=== PATIENT | male | born 1970 | race Two or more races ===

== ENCOUNTER 2022-12-31 12:30 | Emergency (ER) | payer OTHER ==
[~2022-12-31] VITALS: Ht 172.7 cm; Wt 97.7 kg
[2022-12-31 12:35] VITALS: BP 148/51
[2022-12-31] MEDS ORDERED: METF-1211 PO (12:43)
[2022-12-31] MEDS ORDERED: SOTA80 PO ×2 (12:43→13:10)
[2022-12-31] MEDS ORDERED: LISI-659 PO (12:43)
[2022-12-31] MEDS ORDERED: ATOR40TA28 PO (12:43)
[2022-12-31] MEDS ORDERED: PARO10TA89 PO (12:43)
[2022-12-31] MEDS ORDERED: GLIP5TAB12 PO (12:43)
[2022-12-31] MEDS ORDERED: ASPI-1444 PO (12:43)
== END 2022-12-31 13:25 | disposition home or self-care (01) ==
LOC: EMS 12:33
DX: Z76.0 Encounter for issue of repeat prescription (principal); F41.9 Anxiety disorder, unspecified; E11.9 Type 2 diabetes mellitus without complications; I11.9 Hypertensive heart disease without heart failure; Z98.890 Other specified postprocedural states
CPT/HCPCS: 99281; Z7502

== ENCOUNTER 2023-09-01 00:37 | Emergency (ER) | payer OTHER ==
[~2023-09-01] VITALS: Ht 172.7 cm; Wt 97.7 kg
[~2023-09-01 00:37] MED LIST: ASPI-1444 PO; ATOR40TA28 PO; GLIP5TAB16 PO; LISI-659 PO; METF-1211 PO; PARO10TA89 PO; SOTA80 PO; SOTA80TA90 PO
[2023-09-01 00:38] VITALS: BP 136/97; PULSE 74; RESP 16; TEMP 98.2
[2023-09-01 01:47] LABS: COVID AG,FIA SOURCE NASAL SWAB
[2023-09-01 02:16] LABS: INFLUENZA TYPE A NEGATIVE FOR TYPE A (NEGATIVE); INFLUENZA TYPE B NEGATIVE FOR TYPE B (NEGATIVE); SARS-COV2 (COVID) ANTIGEN,FIA Negative (Negative)
== END 2023-09-01 05:11 | disposition left against medical advice (07) ==
LOC: EMS 00:38
DX: R05.9 Cough, unspecified (principal); R09.89 Other specified symptoms and signs involving the circulatory and respiratory systems; Z20.822 Contact with and (suspected) exposure to COVID-19; Z53.21 Procedure and treatment not carried out due to patient leaving prior to being seen by health care provider
CPT/HCPCS: 87804; 99281; Z7502

== ENCOUNTER 2024-05-06 11:52 | Emergency (ER) | payer OTHER ==
[~2024-05-06] VITALS: Ht 175.3 cm; Wt 95.5 kg
[2024-05-06 12:15] VITALS: TEMP 99
[2024-05-06] MEDS ORDERED: METF-446 PO (12:18)
[2024-05-06] MEDS ORDERED: PARO30TA60 PO (12:18)
[2024-05-06] MEDS ORDERED: LISI1TAB53 PO (12:18)
[2024-05-06] MEDS ORDERED: EMPA25TA3 PO (12:18)
[2024-05-06] MEDS ORDERED: ATOR-2 PO (12:18)
[2024-05-06] MEDS ORDERED: SOTA80TA PO (12:18)
[2024-05-06 12:33] LABS: HEMATOCRIT 49.6 % (41-53); HEMOGLOBIN 16.7 g/dL (13.5-17.5); LYMPHOCYTES # (AUTO) 2.2 K/uL (1.0-4.8); MEAN CORPUSCULAR HEMOGLOBIN 28.9 pg (26.0-34.0); MEAN CORPUSCULAR HGB CONC 33.6 G/dL (31.0-37.0); MEAN CORPUSCULAR VOLUME 86 fL (80-100); MONOCYTES # (AUTO) 0.6 K/uL (0.1-1.0); MONOCYTES % (AUTO) 8.1 % (2.0-9.0); NEUTROPHILS # (AUTO) 3.8 K/uL (1.8-7.7); NEUTROPHILS % (AUTO) 54.9 % (40.0-70.0); PLATELET COUNT (AUTO) 243 K/uL (150-450); RED BLOOD CELL COUNT(AUTO) 5.76 MIL/uL (4.50-5.90); RED CELL DISTRIBUTION WIDTH 13.9 % (11.5-14.5)
[2024-05-06 12:38] LABS: ANION GAP 14 mmol/L (8-16); CALCIUM, TOTAL 8.8 mg/dL (8.8-10.5); CARBON DIOXIDE 25 mmol/L (22-29); CHLORIDE 100 mmol/L (98-107); CREATININE 0.92 mg/dL (0.60-1.30); GLOMERULAR FILTR. RATE CALC > 60 mL/min (>60); GLUCOSE,RANDOM 90 mg/dL (70-110); SODIUM SERUM 139 mmol/L (136-145); UREA NITROGEN, BLOOD 14 mg/dL (7-18)
[2024-05-06 12:44] LABS: PROTHROMBIN TIME 10.5 SEC (9.4-11.6)
[2024-05-06 12:45] LABS: ALANINE AMINOTRANSFERASE 41 U/L (12-78); ALBUMIN 3.9 g/dL (3.4-5.0); ALKALINE PHOSPHATASE 83 U/L (46-116); ASPARTATE AMINOTRANSFERASE 24 U/L (15-37); BILIRUBIN,TOTAL 0.8 mg/dL (0.1-1.0); CREATINE KINASE, TOTAL ONLY 68 U/L (39-308); PHOSPHORUS 3.2 mg/dL (2.5-4.9); TOTAL PROTEIN, SERUM 7.3 g/dL (6.4-8.2); TROPONIN I-HIGH SENSITIVITY 6 ng/L (<76)
[2024-05-06 12:54] LABS: B-TYPE NATRIURETIC PEPTIDE 11 pg/mL (0-100)
[2024-05-06] MEDS ORDERED: MAGNESIUM HYDROXIDE SUSPENSION 30 ML UDCUP PO PRN (13:30)
[2024-05-06] MEDS ORDERED: INSULIN LISPRO 100 UNITS/ML SQ PRN (13:30)
[2024-05-06] MEDS ORDERED: ACETAMINOPHEN 325 MG TABLET PO PRN (13:30)
[2024-05-06] MEDS ORDERED: DEXTROSE 50%-WATER 25 GM/50 ML SYRINGE IVP PRN (13:30)
[2024-05-06 13:36] VITALS: BP 117/68; PULSE 72; RESP 17; O2SAT 96
[2024-05-06 14:30] LABS: TROPONIN I-HIGH SENSITIVITY 7 ng/L (<76)
[2024-05-07] MEDS ORDERED: ASPIRIN 81 MG CHEWABLE TABLET PO SCH (09:00)
[2024-05-07] MEDS ORDERED: FAMOTIDINE 20 MG TABLET PO SCH (09:00)
== END 2024-05-06 15:27 | disposition home or self-care (01) ==
LOC: EMS 11:52 → EDH 13:24 → UNDOADMIN 13:24 → UNDODISIN 15:10
DX: R07.89 Other chest pain (principal); I25.2 Old myocardial infarction; I49.5 Sick sinus syndrome; E11.9 Type 2 diabetes mellitus without complications; E66.9 Obesity, unspecified; I10 Essential (primary) hypertension; F41.9 Anxiety disorder, unspecified; I45.6 Pre-excitation syndrome; Z95.0 Presence of cardiac pacemaker; Z83.3 Family history of diabetes mellitus; Z68.31 Body mass index [BMI] 31.0-31.9, adult; Z98.890 Other specified postprocedural states
CPT/HCPCS: 71045; 80053; 82550; 82962; 83735; 83880; 84100; 84484; 85025; 85610; 85730; 93005; 99285; G0378; 36415-L1; 36415-TC